=== PATIENT | male | born 1980 | race Caucasian/White ===

== ENCOUNTER 2017-02-12 18:25 | Emergency (ER) | payer SELFPAY ==
[~2017-02-12] VITALS: Ht 175.3 cm; Wt 80.3 kg
[2017-02-12 18:35] VITALS: BP 141/80
--- NOTE | 2017-02-12 18:51 | PHYS DOC ---
Past History Past Medical History: No Pertinent History Past Surgical History: Appendectomy Alcohol Use: None Drug Use: None Adult General Chief Complaint Chief Complaint: HIP PAIN HPI HPI 36-year-old male presenting to the emergency department today with hip pain in his left hip. This occurred last night when he was on a chair and slipped doing the splits. His pain is a sharp pain that radiates into his groin it is mild to moderate intermittent and without alleviating factors. It is worse when he moves his leg. Review of systems is negative for chest pain shortness of breath abdominal pain head injury loss of consciousness. He denies any other injuries. All other review of systems is negative unless otherwise noted in history of present illness. ED course: 36-year-old male presenting to the emergency department today with left hip injury after doing the splits. Vital signs unremarkable. Pertinent physical exam findings showed mild pain with passive range of motion of the left hip. Patient is able ambulate without difficulty. Nontender knee with normal range of motion. Neurovascular status distally is normal. 2 second cap refill with palpable pulse. Likely the patient sustained tendon and ligament injury. No evidence of dislocated hip or hip fracture. I recommended physical therapy referral and sports medicine referral within the next 2-5 days. He was in discharged home in stable condition. Review of Systems Review of Systems SEE ABOVE. Allergies Allergies Allergies Coded Allergies Type Severity Reaction Last Updated Verified Penicillins Allergy Unknown 02/12/17 Yes lorazepam Allergy Unknown 02/12/17 Yes ondansetron Allergy Unknown 02/12/17 Yes Physical Exam Physical Exam Constitutional: Well developed, well nourished, no acute distress, non-toxic appearance. [] HENT: Normocephalic, atraumatic, bilateral external ears normal, oropharynx moist, no oral exudates, nose normal. [] Eyes: PERRLA, EOMI, conjunctiva normal, no discharge. [] Neck: Normal range of motion, no tenderness, supple, no stridor. [] Cardiovascular:Heart rate regular rhythm, no murmur [] Lungs & Thorax: Bilateral breath sounds clear to auscultation [] Abdomen: Bowel sounds normal, soft, no tenderness, no masses, no pulsatile masses. [] Skin: Warm, dry, no erythema, no rash. [] Back: No tenderness, no CVA tenderness. [] Extremities: see above Neurologic: Alert and oriented X 3, normal motor function, normal sensory function, no focal deficits noted. [] Psychologic: Affect normal, judgement normal, mood normal. [] Current Patient Data Vital Signs Vital Signs Date Time Temp Pulse Resp B/P (MAP) Pulse Ox O2 Delivery O2 Flow Rate FiO2 02/12/17 18:35 98.4 95 18 99 Room Air EKG EKG [] Radiology/Procedures Radiology/Procedures [] Course & Med Decision Making Course & Med Decision Making Pertinent Labs and Imaging studies reviewed. (See chart for details) [] Dragon Disclaimer Dragon Disclaimer This chart was dictated in whole or in part using Voice Recognition software in a busy, high-work load, and often noisy Emergency Department environment. It may contain unintended and wholly unrecognized errors or omissions. Departure Departure: Impression: Primary Impression: Left hip pain Additional Impression: Acute pain of left hip Disposition: HOME, SELF-CARE Condition: STABLE Referrals: [facility] (PCP) [facility] Patient Instructions: Hip Injury, Hip Pain Additional Instructions: Thank you for allowing us to participate in your care today. Followup with your primary care physician in 3 days if your symptoms do not improve. Call your Primary Doctor tomorrow and inform them of your visit today. If you do not have a primary care provider you can ask for a list of our primary care providers. Return to the emergency department you have any new or concerning findings. This should be evaluated by the primary care physician and any necessary consulting services for continued management within a few days after discharge. Return to emergency room if you have any new or concerning symptoms including but not limited to fever, chills, nausea, vomiting, intractable pain, any new rashes, chest pain, shortness of air, uncontrolled bleeding, difficulty breathing, and/or vision loss. You may have been prescribed medication that can change in your level of thinking and ability to operate machinery. These medications include hydrocodone and Ativan. Also, Benadryl has been known to do this as well. Be sure to check with your pharmacist and ask if the medications you've prescribed can affect your level of consciousness. I recommend not operating heavy machinery or driving while on medication such as these. Scripts Hydrocodone Bit/Acetaminophen (HYDROCODONE-APAP 5-325 ) 1 Each Tablet 1 TAB PO PRN Q6HRS Y for PAIN, #7 TAB 0 Refills Prov: RONNIE DOMINGUEZ MD 02/12/17 Problem Qualifiers RONNIE DOMINGUEZ MD Feb 12, 2017 18:51
[2017-02-12] MEDS ORDERED: HYDR-2758 PO (18:52)
== END 2017-02-12 19:00 | disposition home or self-care (01) ==
LOC: ER 18:25
DX: M25.552 Pain in left hip (principal); Z88.0 Allergy status to penicillin; Z88.8 Allergy status to other drugs, medicaments and biological substances; X58.XXXA Exposure to other specified factors, initial encounter; Y93.89 Activity, other specified; Y99.8 Other external cause status; Y92.89 Other specified places as the place of occurrence of the external cause
CPT/HCPCS: 99284

== ENCOUNTER 2017-05-15 17:41 | Emergency (ER) | payer SELFPAY ==
[~2017-05-15] VITALS: Ht 175.3 cm; Wt 89.0 kg
[~2017-05-15 17:41] MED LIST: HYDR-2758 PO
--- NOTE | 2017-05-15 17:45 | ED.ADGEN ---
Past History Past Medical History: No Pertinent History, Other Past Surgical History: Appendectomy, Other Alcohol Use: None Drug Use: None Adult General Chief Complaint Chief Complaint ".. I ve been hurting for couple days.. now.. but seems worse.. Nausea and vomiting.. My upper stomach and Rt flank..." HPI HPI Patient is a 36 year old male who presents with above hx and complaints of N/V, epigastric and Rt. flank pain. Patient rates pain 8-10 out of 10. Pain is grown more severe today. Last ate approximately noon. No history of trauma. No history of travel or contact with poultry, ill animals, reptiles or specific ill contacts. Patient has had previously an appendectomy. No history of gallstones and renal stones with him. There is a family history of gallstones. Patient has no primary care recently moved into the area.. Review of Systems Review of Systems Constitutional: Denies fever or chills [] Eyes: Denies change in visual acuity, redness, or eye pain [] HENT: Denies nasal congestion or sore throat [] Respiratory: Denies cough or shortness of breath [] Cardiovascular: No additional information not addressed in HPI [] GI: Complaints of abdominal pain, nausea, vomiting,. Denies bloody stools or diarrhea [] : Denies dysuria or hematuria [] Musculoskeletal: Denies back pain or joint pain [] Integument: Denies rash or skin lesions [] Neurologic: Denies headache, focal weakness or sensory changes [] Endocrine: Denies polyuria or polydipsia [] Family History Family History Gallstones with mother Current Medications Current Medications Current Medications Medications (Trade) Dose Ordered Sig/Salazar Start Time Stop Time Status Last Admin Dose Admin Diphenhydramine HCl (Benadryl) 50 mg 1X ONCE 05/15/17 18:15 05/15/17 18:16 DC 05/15/17 18:15 50 MG Famotidine (Pepcid) 20 mg 1X ONCE 05/15/17 18:15 05/15/17 18:16 DC 05/15/17 18:53 20 MG Ketorolac Tromethamine (Toradol) 30 mg 1X ONCE 05/15/17 20:15 05/15/17 20:16 DC 05/15/17 20:04 30 MG Lactated Ringer's 1,000 ml @ 1,000 mls/hr Q1H 05/15/17 18:00 05/15/17 18:54 DC 05/15/17 18:40 1,000 MLS/HR Magnesium Hydroxide (Milk Of Magnesia) 2,400 mg 1X ONCE 05/15/17 19:45 05/15/17 19:54 DC 05/15/17 19:50 2,400 MG Promethazine HCl (Phenergan Im) 25 mg 1X ONCE 05/15/17 18:15 05/15/17 18:16 DC 05/15/17 18:54 25 MG See nursing for home medications. Patient is allergic to penicillin Allergies Allergies Allergies Coded Allergies Type Severity Reaction Last Updated Verified Penicillins Allergy Unknown 02/12/17 Yes lorazepam Allergy Unknown 02/12/17 Yes ondansetron Allergy Unknown 02/12/17 Yes Physical Exam Physical Exam Constitutional: There developed, well nourished, in acute distress, non-toxic appearance. [] HENT: Normocephalic, atraumatic, bilateral external ears normal, oropharynx moist, no oral exudates, nose normal. [] Eyes: PERRLA, EOMI, conjunctiva normal, no discharge. [] Neck: Normal range of motion, no tenderness, supple, no stridor. [] Cardiovascular: Tachycardia rate regular rhythm, no murmur [] Lungs & Thorax: Bilateral breath sounds equal at apexes with scattered wheezes on auscultation [] Abdomen: Bowel sounds decreased, soft, epigastric and right upper quadrant tenderness, right flank pain on percussion no masses, no pulsatile masses. Testicles nontender no penile discharge circumcised male. Patient declines rectal at this time. Old surgical scar Skin: Warm, dry, no erythema, no rash. [] Back: No tenderness, no CVA tenderness. [] Extremities: No tenderness, no cyanosis, no clubbing, ROM intact, no edema. No psoas or obturator sign. Neurologic: Alert and oriented X 3, normal motor function, normal sensory function, no focal deficits noted. [] Psychologic: Affect normal, judgement normal, mood normal. [] Current Patient Data Vital Signs Vital Signs Date Time Temp Pulse Resp B/P (MAP) Pulse Ox O2 Delivery O2 Flow Rate FiO2 05/15/17 20:23 65 20 112/67 (82) 97 Room Air 05/15/17 18:12 98.6 Lab Results Laboratory Tests Test 05/15/17 18:05 05/15/17 18:30 White Blood Count 6.1 x10^3/uL (4.0-11.0) Red Blood Count 4.80 x10^6/uL (4.30-5.70) Hemoglobin 14.5 g/dL (13.0-17.5) Hematocrit 41.6 % (39.0-53.0) Mean Corpuscular Volume 87 fL (79-100) Mean Corpuscular Hemoglobin 30 pg (25-35) Mean Corpuscular Hemoglobin Concent 35 g/dL (31-37) Red Cell Distribution Width 13.4 % (11.5-14.5) Platelet Count 295 x10^3/uL (140-400) Neutrophils (%) (Auto) 46 % (31-73) Lymphocytes (%) (Auto) 42 % (24-48) Monocytes (%) (Auto) 11 % (0-9) H Eosinophils (%) (Auto) 0 % (0-3) Basophils (%) (Auto) 1 % (0-3) Neutrophils # (Auto) 2.8 x10^3uL (1.8-7.7) Lymphocytes # (Auto) 2.6 x10^3/uL (1.0-4.8) Monocytes # (Auto) 0.7 x10^3/uL (0.0-1.1) Eosinophils # (Auto) 0.0 x10^3/uL (0.0-0.7) Basophils # (Auto) 0.0 x10^3/uL (0.0-0.2) Prothrombin Time 10.4 SEC (9.4-11.4) Prothrombin Time INR 1.0 (0.9-1.1) PTT 25 SEC (23-33) Sodium Level 141 mmol/L (136-145) Potassium Level 3.8 mmol/L (3.5-5.1) Chloride Level 103 mmol/L (98-107) Carbon Dioxide Level 27 mmol/L (21-32) Anion Gap 11 (6-14) Blood Urea Nitrogen 13 mg/dL (8-26) Creatinine 0.9 mg/dL (0.7-1.3) Estimated GFR (Cockcroft-Gault) 95.0 BUN/Creatinine Ratio 14 (6-20) Glucose Level 105 mg/dL (70-99) H Calcium Level 8.8 mg/dL (8.5-10.1) Total Bilirubin 0.4 mg/dL (0.2-1.0) Aspartate Amino Transferase (AST) 18 U/L (15-37) Alanine Aminotransferase (ALT) 25 U/L (16-63) Alkaline Phosphatase 71 U/L (46-116) Troponin I Quantitative < 0.017 ng/mL (0-0.055) Total Protein 7.2 g/dL (6.4-8.2) Albumin 3.7 g/dL (3.4-5.0) Albumin/Globulin Ratio 1.1 (1.0-1.7) Amylase Level 35 U/L (25-115) Lipase 102 U/L (73-393) Urine Collection Type Unknown Urine Color Yellow Urine Clarity Clear Urine pH 7.0 Urine Specific [place] 1.020 Urine Protein Neg (NEG-TRACE) Urine Glucose (UA) Neg mg/dL (NEG) Urine Ketones (Stick) Trace mg/dL (NEG) Urine Blood Neg (NEG) Urine Nitrite Neg (NEG) Urine Bilirubin Neg (NEG) Urine Urobilinogen Dipstick 2 mg/dL (0.2 mg/dL) Urine Leukocyte Esterase Neg (NEG) Urine RBC 0 /HPF (0-2) Urine WBC Occ /HPF (0-4) Urine Squamous Epithelial Cells Occ /LPF Urine Amorphous Sediment Present /HPF Urine Bacteria 0 /HPF (0-FEW) Urine Opiates Screen Neg (NEG) Urine Methadone Screen Neg (NEG) Urine Barbiturates Neg (NEG) Urine Phencyclidine Screen Neg (NEG) Urine Amphetamine/Methamphetamine Neg (NEG) Urine Benzodiazepines Screen Neg (NEG) Urine Cocaine Screen Neg (NEG) Urine Cannabinoids Screen Neg (NEG) Urine Ethyl Alcohol Neg (NEG) EKG EKG [] Radiology/Procedures Radiology/Procedures My interpretation of abdomen film shows no acute cardiopulmonary findings were free air under diaphragm, a few isolated loops.[] CT of abdomen shows no acute surgical pathology. No hydronephrosis .See formal report Course & Med Decision Making Course & Med Decision Making Pertinent Labs and Imaging studies reviewed. (See chart for details) Patient's stay on a clear fluid diet only to allow bowel rest for the next 48 hours. No milk products no solids. Clear fluids. May take Benadryl as needed for nausea and vomiting. Take [id number] Tylenol and ibuprofen. Follow-up primary care. Patient take Zantac 150 mg twice a day. Consider completing EGD to evaluate for gastritis. Note patient. Issued a prescription for Zofran but patient advised he has problem with this drug therefore not take Zofran and to only take Benadryl for his nausea and vomiting. Return if any concerns. [] Final Impression Final Impression 1. Abdomen pain 2. Biliary colic 3. Gastritis Problems: Dragon Disclaimer Dragon Disclaimer This electronic medical record was generated, in whole or in part, using a voice recognition dictation system. ZACK MADRID MD May 15, 2017 17:45
[2017-05-15] MEDS ORDERED: IV RINGERS SOLUTION,LACTATED 1,000 ML IV SCH (18:00)
--- NOTE | 2017-05-15 18:11 | EKG ---
[address] [address] Test Date: 2017-05-15 Test Time: 18:05:46 Pat Name: FARRAH DOWNS Department: Room: Gender: M [employer]: : [id number] Requested By: ZACK MADRID Order Number: [id number] Reading MD: Hood Delatorre Measurements Intervals [place] Rate: 74 P: 33 MA: 176 QRS: 98 QRSD: 96 T: 13 QT: 366 QTc: 411 Interpretive Statements SINUS RHYTHM Electronically Signed On 05-23-2017 8:15:47 CDT by Hood Delatorre
[2017-05-15] MEDS ORDERED: PROMETHAZINE IM 25 MG/ML VIAL IM ONE (18:15)
[2017-05-15] MEDS ORDERED: KETOROLAC 30 MG/ML VIAL. IV ONE ×2 (18:15→20:15)
[2017-05-15] MEDS ORDERED: FAMOTIDINE 20 MG/2 ML VIAL IVP ONE (18:15)
[2017-05-15] MEDS ORDERED: diphenhydrAMINE 50 MG/ML VIAL IV ONE (18:15)
[2017-05-15 18:26] LABS: BASO % 1 % (0-3); EOS % 0 % (0-3); HEMATOCRIT 41.6 % (39.0-53.0); HEMOGLOBIN 14.5 g/dL (13.0-17.5); LYMPH # 2.6 x10^3/uL (1.0-4.8); LYMPH % 42 % (24-48); MEAN CORPUSCULAR HEMOGLOBIN 30 pg (25-35); MEAN CORPUSCULAR HGB CONC 35 g/dL (31-37); MEAN CORPUSCULAR VOLUME 87 fL (79-100); MONO # 0.7 x10^3/uL (0.0-1.1); MONO % 11 % (0-9); NEUT # 2.8 x10^3uL (1.8-7.7); NEUT % 46 % (31-73); PLATELET COUNT 295 x10^3/uL (140-400); RED CELL DISTRIBUTION WIDTH 13.4 % (11.5-14.5); WHITE BLOOD COUNT 6.1 x10^3/uL (4.0-11.0)
[2017-05-15 18:37] LABS: ALBUMIN 3.7 g/dL (3.4-5.0); ALBUMIN/GLOBULIN RATIO 1.1 (1.0-1.7); CALCIUM 8.8 mg/dL (8.5-10.1); CREATININE 0.9 mg/dL (0.7-1.3); TOTAL BILIRUBIN 0.4 mg/dL (0.2-1.0); TOTAL PROTEIN 7.2 g/dL (6.4-8.2)
[2017-05-15 18:48] LABS: POTASSIUM 3.8 mmol/L (3.5-5.1)
--- NOTE | 2017-05-15 18:56 | RAD ---
CT scan of the abdomen and pelvis without contrast 05/15/2017 CLINICAL HISTORY: Left flank pain. TECHNIQUE: Unenhanced, contiguous, 3 mm axial sections were obtained through the abdomen and pelvis. One or more of the following individualized dose reduction techniques were utilized for this study: 1. Automated exposure control. 2. Adjustment of the mA and/or kV according to patient size. 3. Use of iterative reconstruction technique. Findings: Images through the lung bases demonstrate minimal dependent subsegmental atelectasis. The liver, spleen, pancreas, and adrenal glands are within normal limits. No renal or ureteral calculus is seen. There is no evidence of obstruction of either collecting system. The abdominal aorta tapers normally. The gallbladder is slightly contracted. No free fluid or free air is seen within the abdomen. There is no evidence of bowel obstruction. The appendix is not visualized consistent with the patient's history of an appendectomy. Images through the pelvis demonstrate the urinary bladder to be slightly contracted. No distal ureteral calculus is seen. No free fluid is noted. Minimal S-shaped curvature of the thoracolumbar spine is seen. IMPRESSION: No acute abnormality is seen. Electronically signed by: Carlos Vargas MD (05/15/2017 6:52 PM) [facility]
[2017-05-15 19:06] LABS: BARBITURATES NEG (NEG); BENZODIAZEPINES NEG (NEG); BILIRUBIN,URINE NEG (NEG); CANNABINOIDS NEG (NEG); CLARITY,URINE CLEAR; COCAINE NEG (NEG); COLOR,URINE YELLOW; GLUCOSE,URINE NEG (NEG); METHADONE NEG (NEG); OPIATES NEG (NEG); PHENCYCLIDINE NEG (NEG)
[2017-05-15 19:07] LABS: AMORPHOUS SEDIMENT,UR PRESENT /HPF; BACTERIA,URINE 0 /HPF (0-FEW); NITRITE,URINE NEG (NEG); RBC,URINE 0 /HPF (0-2); SQUAMOUS EPITHELIAL CELL,UR OCC /LPF; UROBILINOGEN,URINE 2 mg/dL (0.2 mg/dL); WBC,URINE OCC /HPF (0-4)
[2017-05-15 19:20] LABS: AMPHETAMINE/METHAMPHETAMINE NEG (NEG)
[2017-05-15] MEDS ORDERED: MAGNESIUM HYDROXIDE 2,400 MG/30 ML ORAL.SUSP. PO ONE (19:45)
[2017-05-15 20:23] VITALS: BP 112/67
[2017-05-15] MEDS ORDERED: RANI150T6 PO (20:23)
[2017-05-15] MEDS ORDERED: ONDA8TAB12 PO (20:23)
--- NOTE | 2017-05-16 08:45 | RAD ---
Examination: Acute abdomen series History : history of abdominal pain Comparison: None available. Findings: The cardiomediastinal silhouette appears unremarkable. There is no acute infiltrate or visualized pneumothorax. No evidence of free air noted under the hemidiaphragm. Bowel gas pattern appears unremarkable. Feces and gas noted in the colon. Impression: Unremarkable visualized exam.
== END 2017-05-15 20:35 | disposition home or self-care (01) ==
LOC: ER 17:41
DX: K80.50 Calculus of bile duct without cholangitis or cholecystitis without obstruction (principal); K29.70 Gastritis, unspecified, without bleeding; Z90.49 Acquired absence of other specified parts of digestive tract; Z88.0 Allergy status to penicillin; Z88.8 Allergy status to other drugs, medicaments and biological substances
CPT/HCPCS: 36415; 74022; 74176; 80053; 80307; 81001; 82150; 83690; 84484; 85025; 85610; 85730; 93005; 96361; 96372; 96374; 96375; 96376; 99285; J1200; J1885; J2550; J7120; S0028; G0479